=== PATIENT | male | born 1960 | race Caucasian/White ===

== ENCOUNTER 2019-03-23 18:57 | Inpatient (IN) ==
--- NOTE | 2019-03-23 20:00 | Emergency Department Note ---
Disposition Clinical Impression: Hyperglycemia, COPD exacerbation Pneumonia Qualifiers: Pneumonia type: due to unspecified organism Laterality: left Lung location: unspecified part of lung Qualified Code(s): J18.9 - Pneumonia, unspecified organism Disposition: Still a Patient Referrals: Sarah Kirby [Primary Care Provider] - Forms: ED Satisfaction Letter Time of Disposition: 23:06 Chest Pain HPI - General Chief Complaint: ED Chest Pain Stated Complaint: chest pains Time Seen by Provider: 03/23/19 20:00 Source: patient Limitations: no limitations Vital Signs Reviewed: Yes Nursing Notes Reviewed: Yes - History of Present Illness HPI Narrative: 58-year-old male presents emergency Department concern for left-sided chest pain has been intermittent in nature last couple days. Patient's had cough, fever, sputum production. Patient has no history of coronary artery disease, but does state that he has hypertension, hyperlipidemia, has been a smoker. States that he started experiencing some left-sided chest sharpness that is worse when he presses on it today. States that he started feeling some numbness and tingling in his left upper extremity that made him want to come in. Severity scale (1-10): 1 - Related Data Home Medications Medication Instructions Recorded Confirmed Albuterol Sulfate [Ventolin Hfa] 2 puff IH QID PRN 10/05/17 03/23/19 Fluticasone Propionate Nasal 1 spray NS DAILY 10/05/17 03/23/19 [Flonase] Fluticasone/Salmeterol [Advair 1 each IH BID 10/05/17 03/23/19 250-50 Diskus] Levothyroxine [Synthroid] 75 mcg PO DAILY 10/05/17 03/23/19 Loratadine [Allergy Relief] 10 mg PO DAILY 10/05/17 03/23/19 Meloxicam 15 mg PO DAILY 10/05/17 03/23/19 Omeprazole [PriLOSEC] 20 mg PO DAILY 10/05/17 03/23/19 Simvastatin [Zocor] 40 mg PO HS 10/05/17 03/23/19 hydroCHLOROthiazide 25 mg PO DAILY 10/05/17 03/23/19 [Hydrochlorothiazide] rOPINIRole [Requip] 1 mg PO HS 10/05/17 03/23/19 Albuterol Sulfate [Ventolin Hfa] 2 puff IH Q6HR PRN 03/23/19 03/23/19 Amoxicillin/Clavulanate [Augmentin] 875 mg PO BIDWM 03/23/19 03/23/19 PredniSONE [Joel] 5 mg PO TID 03/23/19 03/23/19 Tiotropium [place] [Spiriva 2 puff IH DAILY 03/23/19 03/23/19 Respimat] Allergies Allergy/AdvReac Type Severity Reaction Status Date / Time iodine Allergy Rash Verified 03/23/19 19:29 All systems ED: reviewed and negative except as stated. Review of Systems: As Per HPI Constitutional: Denies: fever Cardiovascular: Reports: chest pain Respiratory: Denies: cough, dyspnea Gastrointestinal: Denies: abdominal pain, nausea, vomiting Musculoskeletal: Denies: back pain Integumentary: Denies: rash Neurological: Reports: numbness, paresthesias Chest Pain PMH - Past Medical History Medical history: Reports: asthma, COPD Psychiatric history: Reports: no psych history - Social History Smoking Status: Former smoker Alcohol use: Reports: occasionally Drug use: Reports: none Physical Exam - General Limitations: no limitations General appearance: alert - Head Head exam: normocephalic - Eye Eye exam: Present: EOMI - ENT ENT exam: mucous membranes moist - Neck Neck exam: Present: trachea midline - Chest Chest inspection: Present: symmetric chest wall rise - Respiratory Respiratory exam: Present: wheezes (Mild). Absent: respiratory distress, accessory muscle use - Cardiovascular Cardiovascular exam: Present: regular rate, normal rhythm, normal heart sounds - Abdominal Exam Abdominal exam: Present: soft, Non-Tender. Absent: distention, guarding, rebound, rigidity - Extremities Exam Extremities exam: Present: normal capillary refill. Absent: calf tenderness - Back Exam Back exam: Present: full ROM - Neurological Exam Neurological exam: Present: alert, oriented X3 - Psychiatric Psychiatric exam: Present: normal affect, normal mood - Skin Skin exam: Present: warm, dry, intact, normal color. Absent: rash Course Vital Signs Temperature 98.1 F 03/23/19 19:22 Pulse Rate 59 03/23/19 19:22 Respiratory Rate 18 03/23/19 19:22 Blood Pressure 138/73 03/23/19 19:22 O2 Sat by Pulse Oximetry 91 03/23/19 19:22 Temperature 98.1 F 03/23/19 19:22 Pulse Rate 65 03/23/19 21:30 Respiratory Rate 16 03/23/19 21:41 Blood Pressure 160/89 03/23/19 21:30 O2 Sat by Pulse Oximetry 88 03/23/19 21:41 Oxygen Delivery Oxygen Delivery Nasal Cannula Chest Pain - [facility] Narrative Medical decision making narrative: 4-year-old male was's [facility] department with concern for left-sided chest pain. Patient hemodynamically stable and currently on his baseline 2 L of oxygen. ECG does reveal some nonspecific T-wave flattening in lateral leads. No other acute findings. D-dimer that was obtained is negative. Chest x-ray reveals left- sided pneumonia. Patient given DuoNeb's, steroids, Levaquin in the emergency department. Troponin negative. Follow-up with his primary care provider for resolution of his pneumonia and for further workup of his chest pain as he has a heart score 4. Patient also had elevated glucose in the 500s. Potassium was low at 2.9. Have not started insulin at this time. Patient to be given 2 L of 0.9% normal saline here in the emergency department. Patient denies any history of diabetes. Elevated beta hydroxy butyric acid, but no evidence of DKA. Patient hemodynamically stable at time of admission. Chest X-Ray 03/23/19 19:03 IMPRESSION: Left more than right basilar opacities may represent bibasilar atelectasis or multifocal pneumonia/aspiration. Hyperinflation suggesting COPD. D/ / Sheldon Leavitt MD / Sheldon Leavitt MD Interpreting Provider: Sheldon Leavitt MD - Lab Data Result diagrams: 03/23/19 20:21 03/23/19 21:32 Lab Results 03/23/19 03/23/19 03/23/19 Range/Units 20:21 20:21 20:21 WBC 9.5 (4.3-11.1) K/mcL RBC 5.27 (4.19-5.50) M/mcL Hgb 16.0 (12.9-16.9) g/dL Hct 47.2 (37.5-50.1) % MCV 89.6 (83.0-100.0) fL MCH 30.4 (28.0-33.3) pg MCHC 33.9 (31.6-35.5) g/dL RDW 13.0 (11.5-14.5) % Plt Count 185 (140-400) K/mcL MPV 12.5 H (9.4-12.4) fL Immature Gran % 1.8 (0-4) % Seg Neutrophils % 67.0 % Lymphocytes % 23.7 % Monocytes % 6.7 % Eosinophils % 0.3 % Basophils % 0.5 % Neutrophils # 6.4 (1.6-8.9) K/mcL Lymphocytes # 2.3 (0.6-4.6) K/mcL Monocytes # 0.6 (0.0-1.3) K/mcL Eosinophils # 0.0 (0.0-0.6) K/mcL Basophils # 0.1 (0.0-0.2) K/mcL PT 10.0 (9.4-12.1) Seconds INR 0.9 D-Dimer 325 (0-500) ng/mLFEU VBG pH (7.32-7.42) pH Units VBG pCO2 (41-51) mmHg VBG pO2 (25-50) mmHg VBG HCO3 (21-27) mEq/L Sodium (136-145) mEq/L Potassium (3.5-5.1) mEq/L Chloride (98-107) mEq/L Carbon Dioxide (23-29) mEq/L BUN (8-23) mg/dL Creatinine (0.70-1.30) mg/dL Est GFR ( Amer) (> 60) Est GFR (Non-Af Amer) (> 60) BUN/Creatinine Ratio (6-26) Glucose (70-105) mg/dL Calculated Osmolality (280-300) Calcium (8.6-10.3) mg/dL Magnesium (1.6-2.6) mg/dL Troponin I (< 0.04) ng/mL Beta-Hydroxybutyric Acd (0.02-0.27) mmol/L 03/23/19 03/23/19 03/23/19 Range/Units 21:32 22:28 22:28 WBC (4.3-11.1) K/mcL RBC (4.19-5.50) M/mcL Hgb (12.9-16.9) g/dL Hct (37.5-50.1) % MCV (83.0-100.0) fL MCH (28.0-33.3) pg MCHC (31.6-35.5) g/dL RDW (11.5-14.5) % Plt Count (140-400) K/mcL MPV (9.4-12.4) fL Immature Gran % (0-4) % Seg Neutrophils % % Lymphocytes % % Monocytes % % Eosinophils % % Basophils % % Neutrophils # (1.6-8.9) K/mcL Lymphocytes # (0.6-4.6) K/mcL Monocytes # (0.0-1.3) K/mcL Eosinophils # (0.0-0.6) K/mcL Basophils # (0.0-0.2) K/mcL PT (9.4-12.1) Seconds INR D-Dimer (0-500) ng/mLFEU VBG pH (7.32-7.42) pH Units VBG pCO2 (41-51) mmHg VBG pO2 (25-50) mmHg VBG HCO3 (21-27) mEq/L Sodium 131 L (136-145) mEq/L Potassium 2.9 L (3.5-5.1) mEq/L Chloride 83 L (98-107) mEq/L Carbon Dioxide 31 H (23-29) mEq/L BUN 24 H (8-23) mg/dL Creatinine 1.29 (0.70-1.30) mg/dL Est GFR ( Amer) > 60 (> 60) Est GFR (Non-Af Amer) 57 L (> 60) BUN/Creatinine Ratio 19 (6-26) Glucose 575 H* (70-105) mg/dL Calculated Osmolality 303 H (280-300) Calcium 8.6 (8.6-10.3) mg/dL Magnesium 2.4 (1.6-2.6) mg/dL Troponin I < 0.03 (< 0.04) ng/mL Beta-Hydroxybutyric Acd 1.39 H (0.02-0.27) mmol/L 03/23/19 Range/Units 22:45 WBC (4.3-11.1) K/mcL RBC (4.19-5.50) M/mcL Hgb (12.9-16.9) g/dL Hct (37.5-50.1) % MCV (83.0-100.0) fL MCH (28.0-33.3) pg MCHC (31.6-35.5) g/dL RDW (11.5-14.5) % Plt Count (140-400) K/mcL MPV (9.4-12.4) fL Immature Gran % (0-4) % Seg Neutrophils % % Lymphocytes % % Monocytes % % Eosinophils % % Basophils % % Neutrophils # (1.6-8.9) K/mcL Lymphocytes # (0.6-4.6) K/mcL Monocytes # (0.0-1.3) K/mcL Eosinophils # (0.0-0.6) K/mcL Basophils # (0.0-0.2) K/mcL PT (9.4-12.1) Seconds INR D-Dimer (0-500) ng/mLFEU VBG pH 7.45 H (7.32-7.42) pH Units VBG pCO2 47 (41-51) mmHg VBG pO2 67 H (25-50) mmHg VBG HCO3 33 H (21-27) mEq/L Sodium (136-145) mEq/L Potassium (3.5-5.1) mEq/L Chloride (98-107) mEq/L Carbon Dioxide (23-29) mEq/L BUN (8-23) mg/dL Creatinine (0.70-1.30) mg/dL Est GFR ( Amer) (> 60) Est GFR (Non-Af Amer) (> 60) BUN/Creatinine Ratio (6-26) Glucose (70-105) mg/dL Calculated Osmolality (280-300) Calcium (8.6-10.3) mg/dL Magnesium (1.6-2.6) mg/dL Troponin I (< 0.04) ng/mL Beta-Hydroxybutyric Acd (0.02-0.27) mmol/L - EKG Data EKG attestation: Yes I reviewed and interpreted this EKG. EKG results narrative: 19:10 Ventricular rate 60 bpm, IL interval 170 ms, QRS duration 105 ms, QT 397 ms, left axis deviation. Sinus rhythm with diffuse T-wave flattening when in comparison with previous ECG. Heart Score - Score History: Slightly Suspicious EKG: Non Specific repolarisation Disturbance Age: 45-65 Risk Factors: Equal/Greater than 3 risk factor or history of atherosclerotic disease Troponin: Less than normal limit HEART Score Total: 4 Attestation Statement - Attestation Attestation: I reviewed the residents documentation and agree with the residents assessment and plan of care. I have personally had face to face time with the patient. (Brief History, Brief Exam, and MDM) I personally supervised and was present for the wharton/critical portions of the following procedures completed by the resident: (add procedures performed here). [id number] time provided Patient arrives complaining of left lateral chest discomfort with a tingling sensation in his left arm. He recently drove back from [place]. He is not tachypneic, tachycardic, conversationally dyspneic, nor hypoxic. I attest to supervising the resident physician's interpretation of the ECG
[2019-03-23 20:31] LABS: Basophils # 0.1 K/mcL (0.0-0.2); Basophils % 0.5 %; Eosinophils % 0.3 %; Hematocrit 47.2 % (37.5-50.1); Immature Granulocytes % 1.8 % (0-4); Lymphocytes # 2.3 K/mcL (0.6-4.6); Lymphocytes % 23.7 %; Mean Corpuscular HGB Conc 33.9 g/dL (31.6-35.5); Mean Corpuscular Hemoglobin 30.4 pg (28.0-33.3); Mean Corpuscular Volume 89.6 fL (83.0-100.0); Mean Platelet Volume 12.5 fL (9.4-12.4); Monocytes # 0.6 K/mcL (0.0-1.3); Monocytes % 6.7 %; Neutrophils # 6.4 K/mcL (1.6-8.9); Platelet Count 185 K/mcL (140-400); Red Blood Count 5.27 M/mcL (4.19-5.50); White Blood Count 9.5 K/mcL (4.3-11.1)
[2019-03-23 20:39] LABS: INR 0.9
[2019-03-23] MEDS ORDERED: Morphine Sulfate Immed Rel 15 MG TABLET PO STA (21:12)
[2019-03-23] MEDS ORDERED: levoFLOXacin 750 MG TABLET PO ONE ×2 (21:13→21:34)
[2019-03-23] MEDS ORDERED: predniSONE 20 MG TABLET PO ONE (21:13)
[2019-03-23] MEDS ORDERED: Ipratropium/Albuterol Neb 3 ML IH ONE (21:13)
[2019-03-23 22:11] LABS: BUN/Creatinine Ratio 19 (6-26); Blood Urea Nitrogen 24 mg/dL (8-23); Calcium 8.6 mg/dL (8.6-10.3); Carbon Dioxide 31 mEq/L (23-29); Chloride 83 mEq/L (98-107); Glucose 575 mg/dL (70-105); Osmolality,Calculated 303 (280-300); Potassium 2.9 mEq/L (3.5-5.1); Sodium 131 mEq/L (136-145); Troponin I < 0.03 ng/mL (< 0.04); eGFR For African Americans > 60 (> 60); eGFR For Non-African Americans 57 (> 60)
[2019-03-23] MEDS ORDERED: 0.9 % Sodium Chloride 1,000 ML IVC ONE ×2 (22:11→23:28)
[2019-03-23] MEDS ORDERED: Potassium Chloride 40 MEQ, Lidocaine 1% 2 ML in D5% in Water 500 ML IVPB ONE (22:27)
[2019-03-23 22:48] LABS: VBG HCO3 33 mEq/L (21-27); VBG PCO2 47 mmHg (41-51); VBG PH 7.45 pH Units (7.32-7.42); VBG PO2 67 mmHg (25-50)
--- NOTE | 2019-03-24 00:33 | Internal Med History&Physical ---
<Delmy Barbosa M - Last Filed: 03/24/19 06:13> Date of Encounter: 03/24/19 Time of Encounter: 00:33 Internal Medicine - H&P: HPI Admitted From: Emergency Dept History of present illness: Mr. Mendez is a 58 year old male with history of COPD, hyperlipidemia, hypertension who presented to the emergency department on 03/23/19 secondary to left sided chest pain and generalized weakness. Over the past several weeks the patient has had noted progressive worsening of his weakness and has noted intermittent fluttering of his heart with intermittent pain over the last several days. He does not describe an exertional component to his chest pain. The chest pain is reproducible and no longer present but did previously have tingling in his left upper extremity. He also notes productive cough, worsening over the last couple of days with green sputum. He was recently treated as an outpatient for possible pneumonia and was given 2 shots in the office of which he is unsure of the name of the medication and a prescription for prednisone and an antibiotic which he has been taking for the last 2 days. The patient otherwise had a recent long car trip from [place] but denies any previous history of DVT, clotting disorder. He denies feeling short of breath at this time. He otherwise has noted polyuria and polydipsia. He denies any previous history of diabetes or family history of diabetes. In the emergency department the patient was found to have no significant leukocytosis or anemia. Patient's BMP shows hyponatremia to 131, hypokalemia down to 2.9, glucose elevated at 575. Patient does have a anion gap metabolic acidosis with respiratory alkalosis. Past Med Surg Social Fam HX - Past Medical History Attestation: Yes The following information was validated with the patient. Source: patient, old records reviewed Medical history: asthma, COPD, hyperlipidemia, hypertension Psychiatric history: no psych history - Social History Smoking Status: Former smoker Smokeless Tobacco Status: No Alcohol use: occasionally Drug use: none - Family History Father Cause of : [place] Hx Family Cardiac Disorders: Yes Mother Hx Family Cancer: Yes (Lung cancer) Internal Medicine - H&P: Meds Albuterol Sulfate [Ventolin Hfa] 2 puff IH QID PRN 10/05/17 [History] Fluticasone Propionate Nasal [Flonase] 1 spray NS DAILY 10/05/17 [History] Fluticasone/Salmeterol [Advair 250-50 Diskus] 1 each IH BID 10/05/17 [History] Levothyroxine [Synthroid] 75 mcg PO DAILY 10/05/17 [History] Loratadine [Allergy Relief] 10 mg PO DAILY 10/05/17 [History] Meloxicam 15 mg PO DAILY 10/05/17 [History] Omeprazole [PriLOSEC] 20 mg PO DAILY 10/05/17 [History] Simvastatin [Zocor] 40 mg PO HS 10/05/17 [History] hydroCHLOROthiazide [Hydrochlorothiazide] 25 mg PO DAILY 10/05/17 [History] rOPINIRole [Requip] 1 mg PO HS 10/05/17 [History] Albuterol Sulfate [Ventolin Hfa] 2 puff IH Q6HR PRN 03/23/19 [History] Amoxicillin/Clavulanate [Augmentin] 875 mg PO BIDWM 03/23/19 [History] PredniSONE [Joel] 5 mg PO TID 03/23/19 [History] Tiotropium [place] [Spiriva Respimat] 2 puff IH DAILY 03/23/19 [History] Allergy/AdvReac Type Severity Reaction Status Date / Time iodine Allergy Rash Verified 03/23/19 19:29 All Systems PM: A 10-system review of systems was performed and is negative for pertinent findings except as documented above in the HPI. - Constitutional Constitutional: weakness, no chills, no fever(s) - EENT Eyes: no change in vision - Cardiovascular Cardiovascular ROS IM: chest pain, palpitations, no dyspnea, no edema - Respiratory Respiratory: cough, chest congestion, no wheezing, no pain on inspiration - Gastrointestinal Gastrointestinal: no abdominal pain, no constipation, no vomiting - Genitourinary Genitourinary ROS male: urinary frequency, no dysuria - Musculoskeletal Musculoskeletal ROS IM: no arthralgias, no back pain - Integumentary Integumentary IM: no erythema, no rash - Neurological Neurological ROS: tingling, no dizziness, no headache(s) - Constitutional Vitals: Temp Pulse Resp BP Pulse Ox 98.1 F 69 18 147/72 96 03/23/19 19:22 03/24/19 00:30 03/24/19 00:30 03/24/19 00:30 03/24/19 00:30 Exam: General: Conversant. No apparent distress. Follow commands. Appears stated age. Neck: No JVD. Trachea midline. Neck supple. Eyes: PERRL. No scleral icterus. HENT: Normocephalic and atraumatic. Moist mucus membranes. Cardiovascular: Regular rate and rhythm. Normal S1 and S2. No murmurs appreciated. Normal capillary refill. Extremities well perfused with 2+ distal pulses bilaterally. No edema. Pulmonary: Diffuse expiratory wheezing. Not in respiratory distress. Speaks in full sentences. on home 2L NC. Abdomen: Soft, nondistended, and tontender. No bruits or masses. No guarding. Neuro: Alert and oriented x3. No slurred speech. No focal deficits noted. Skin: No rashes noted on visualized skin. Musculoskeletal: No bony abnormalities visualized. Moves all extremities. Psych: Normal mood. Pleasant. Makes appropriate eye contact. Internal Med - H&P Results - Labs CBC & Chem 7: 03/24/19 02:35 03/24/19 02:35 Labs: Short CBC 03/23/19 Range/Units 20:21 WBC 9.5 (4.3-11.1) K/mcL Hgb 16.0 (12.9-16.9) g/dL Hct 47.2 (37.5-50.1) % Plt Count 185 (140-400) K/mcL Neutrophils # 6.4 (1.6-8.9) K/mcL BMP 03/23/19 21:32 Sodium 131 L Potassium 2.9 L Chloride 83 L Carbon Dioxide 31 H BUN 24 H Creatinine 1.29 Glucose 575 H* Calcium 8.6 Cardiac Enzymes 03/23/19 Range/Units 21:32 Troponin I < 0.03 (< 0.04) ng/mL - ABG Interpretation ABG results: 03/23/19 22:45 VBG pH 7.45 H VBG pCO2 47 VBG pO2 67 H VBG HCO3 33 H - Impressions ITS Impressions Chest X-Ray 03/23/19 19:03 IMPRESSION: Left more than right basilar opacities may represent bibasilar atelectasis or multifocal pneumonia/aspiration. Hyperinflation suggesting COPD. D/ / Sheldon Leavitt MD / Sheldon Leavitt MD Interpreting Provider: Sheldon Leavitt MD - Assessment and Plan (1) Chest pain Current Visit: Yes Status: Acute Assessment and plan: * Atypical given reproducibility * Nonexertional * Will trend troponins * No ischemic EKG changes * Repeat echo, no previous CHF seen on echo in 2017 Qualifiers: Chest pain type: precordial pain Qualified Code(s): R07.2 - Precordial pain (2) Hyperglycemia Current Visit: Yes Status: Acute Assessment and plan: * There is anion gap acidosis with some ketonuria and elevated beta- hydroxybutyrate but there is alkalotic component with compensation * Patient does admit to polyuria and polydipsia * Recheck BMP following fluid administration of 2L in ED shows normalization of hypokalemia and anion gap, question whether stemming from new onset diabetes * Hypokalemic to 2.9 therefore insulin was not started, recheck following fluids has normalized * Will place on sliding scale insulin and monitor closely * BMP in 4 h * HgbA1c pending * Hyperglycemia may be resultant from recent steroid administration as outpatient (3) Pneumonia Current Visit: Yes Status: Acute Assessment and plan: * Patient started treatment for suspected pneumonia as outpatient two days ago * Will continue levaquin * Not requiring oxygen above baseline, not tachycardic any given evidence of productive cough and LLL infiltrate do not have suspicion for PE at this time Qualifiers: Pneumonia type: due to unspecified organism Laterality: left Lung location: lower lobe of lung Qualified Code(s): J18.1 - Lobar pneumonia, unspecified organism (4) COPD exacerbation Current Visit: Yes Status: Acute Assessment and plan: * Patient does have mild wheezing on examination but continues on home oxygen without significant work of breathing * Scheduled nebs * Home medications * Continue prednisone (5) HTN (hypertension) Current Visit: Yes Status: Acute Assessment and plan: * Per history but on no home medications, will continue to monitor Qualifiers: Hypertension type: essential hypertension Qualified Code(s): I10 - Essential (primary) hypertension (6) DVT prophylaxis Current Visit: Yes Status: Acute Assessment and plan: * Heparin SQ - Time Spent With Patient Total time spent is greater than 50% in coordination of care (as documented) at patient's floor/unit and/or counseling patient: <Sylvia Moreno - Last Filed: 03/24/19 06:51> Date of Encounter: 03/24/19 Internal Medicine - H&P: HPI History of present illness: Mr. Mendez is a 58 year old male All Systems PM: A 10-system review of systems was performed and is negative for pertinent findings except as documented above in the HPI. - Constitutional Vitals: Temp Pulse Resp BP Pulse Ox 98 F 64 20 147/56 93 03/24/19 04:22 03/24/19 06:00 03/24/19 06:00 03/24/19 06:00 03/24/19 06:00 Internal Med - H&P Results - Labs CBC & Chem 7: 03/24/19 02:35 03/24/19 02:35 Labs: Short CBC 03/23/19 03/24/19 Range/Units 20:21 02:35 WBC 9.5 8.9 (4.3-11.1) K/mcL Hgb 16.0 15.6 (12.9-16.9) g/dL Hct 47.2 46.9 (37.5-50.1) % Plt Count 185 181 (140-400) K/mcL Neutrophils # 6.4 7.4 (1.6-8.9) K/mcL BMP 03/23/19 03/24/19 21:32 02:35 Sodium 131 L 132 L Potassium 2.9 L 3.7 D Chloride 83 L 92 L Carbon Dioxide 31 H 29 BUN 24 H 20 Creatinine 1.29 1.08 Glucose 575 H* 457 H Calcium 8.6 7.7 L Cardiac Enzymes 03/23/19 03/24/19 Range/Units 21:32 01:30 Troponin I < 0.03 < 0.03 (< 0.04) ng/mL Urine 03/24/19 Range/Units 00:55 Urine Color Yellow (Yellow) Urine Clarity Clear (Clear) Urine pH 6.5 (5.0-8.0) pH Units Ur Specific [place] 1.030 H (1.010-1.025) Urine Protein Negative (Neg-Trace) mg/dL Urine Glucose (UA) >=1000 H (Normal) mg/dL - ABG Interpretation ABG results: 03/23/19 22:45 VBG pH 7.45 H VBG pCO2 47 VBG pO2 67 H VBG HCO3 33 H - Impressions ITS Impressions Chest X-Ray 03/23/19 19:03 IMPRESSION: Left more than right basilar opacities may represent bibasilar atelectasis or multifocal pneumonia/aspiration. Hyperinflation suggesting COPD. D/ / Sheldon Leavitt MD / Sheldon Leavitt MD Interpreting Provider: Sheldon Leavitt MD - Time Spent With Patient Total time spent is greater than 50% in coordination of care (as documented) at patient's floor/unit and/or counseling patient: - Attending Attestation I performed a history and physical examination of the patient and discussed his management with the resident. I reviewed the residents note and agree with the documented findings and plan of care.
[2019-03-24] MEDS ORDERED: Naloxone 0.4 MG/ML INJ IVP PRN ×2 (01:03→11:07)
[2019-03-24 01:04] LABS: Bilirubin,Urine Negative (Negative); Blood,Urine Negative (Negative); Clarity,Urine Clear (Clear); Color,Urine Yellow (Yellow); Glucose,Urine (UA) >=1000 mg/dL (Normal); Ketones,Urine Trace mg/dL (Negative); Leukocyte Esterase,Urine Negative (Negative); Nitrite,Urine Negative (Negative); PH,Urine 6.5 pH Units (5.0-8.0); Protein,Urine Negative (Neg-Trace); Urobilinogen,Urine Normal (Normal)
[2019-03-24] MEDS ORDERED: Ibuprofen 600 MG TABLET PO ONE (02:33)
[2019-03-24 02:50] LABS: Basophils % 0.5 %; Hematocrit 46.9 % (37.5-50.1); Hemoglobin 15.6 g/dL (12.9-16.9); Immature Granulocytes % 3.5 % (0-4); Lymphocytes # 0.9 K/mcL (0.6-4.6); Lymphocytes % 10.2 %; Mean Corpuscular HGB Conc 33.3 g/dL (31.6-35.5); Mean Corpuscular Hemoglobin 30.1 pg (28.0-33.3); Mean Corpuscular Volume 90.5 fL (83.0-100.0); Mean Platelet Volume 12.5 fL (9.4-12.4); Monocytes # 0.2 K/mcL (0.0-1.3); Neutrophils # 7.4 K/mcL (1.6-8.9); Platelet Count 181 K/mcL (140-400); Red Blood Count 5.18 M/mcL (4.19-5.50); Red Cell Distribution Width 12.8 % (11.5-14.5); Segmented Neutrophils % 83.8 %; White Blood Count 8.9 K/mcL (4.3-11.1)
[2019-03-24 03:31] LABS: BUN/Creatinine Ratio 19 (6-26); Blood Urea Nitrogen 20 mg/dL (8-23); Calcium 7.7 mg/dL (8.6-10.3); Carbon Dioxide 29 mEq/L (23-29); Chloride 92 mEq/L (98-107); Glucose 457 mg/dL (70-105); Magnesium 2.6 mg/dL (1.6-2.6); Osmolality,Calculated 297 (280-300); Potassium 3.7 mEq/L (3.5-5.1); Sodium 132 mEq/L (136-145); eGFR For African Americans > 60 (> 60); eGFR For Non-African Americans > 60 (> 60)
[2019-03-24 04:13] LABS: Phosphorous 3.1 mg/dL (2.7-4.5)
[2019-03-24] MEDS: Albuterol 2.5 MG/3 ML NEBULIZER IH SCH ×5 (04:14→19:57)
[2019-03-24] MEDS ORDERED: Insulin Human Regular 10 UNIT in 0.9 % Sodium Chloride 10 ML IV ONE (04:29)
[2019-03-24] MEDS ORDERED: Dextrose Gel 15 GM/37.5 ML TUBE PO PRN ×4 (05:35→11:07)
[2019-03-24] MEDS ORDERED: D5% in Water 1,000 ML IVC PRN ×2 (05:35→11:07)
[2019-03-24] MEDS ORDERED: *HR* Dextrose 50 % in Water (Syg) 50 ML SYRINGE IVP PRN ×2 (05:35→11:07)
[2019-03-24 06:56] LABS: VBG HCO3 29 mEq/L (21-27); VBG PCO2 52 mmHg (41-51); VBG PH 7.34 pH Units (7.32-7.42); VBG PO2 56 mmHg (25-50)
[2019-03-24 07:13] LABS: BUN/Creatinine Ratio 17 (6-26); Blood Urea Nitrogen 19 mg/dL (8-23); Calcium 8.3 mg/dL (8.6-10.3); Carbon Dioxide 29 mEq/L (23-29); Chloride 93 mEq/L (98-107); Glucose 414 mg/dL (70-105); Magnesium 2.7 mg/dL (1.6-2.6); Phosphorous 4.1 mg/dL (2.7-4.5); Potassium 3.3 mEq/L (3.5-5.1); eGFR For African Americans > 60 (> 60); eGFR For Non-African Americans > 60 (> 60)
[2019-03-24] MEDS ORDERED: Insulin LISPRO 300 UNITS/3 ML VIAL SQ SCH ×4 (07:30→21:00)
[2019-03-24 07:32] LABS: Estimated Average Glucose 361 mg/dl
--- NOTE | 2019-03-24 07:40 | Internal Med Progress Note ---
<Edd Matthew - Last Filed: 03/24/19 12:37> Hospitalist Progress Note - Encounter Date of Encounter: 03/24/19 - Exam Vitals: Temp Pulse Resp BP Pulse Ox 97.5 F L 57 16 149/75 93 03/24/19 07:40 03/24/19 11:00 03/24/19 12:05 03/24/19 11:00 03/24/19 12:05 - Time Spent with Patient Total time spent is greater than 50% in coordination of care (as documented) at patient's floor/unit and/or counseling patient: Internal Medicine: Result - Labs CBC & Chem 7: 03/24/19 02:35 03/24/19 06:38 Labs: Short CBC 03/23/19 03/24/19 Range/Units 20:21 02:35 WBC 9.5 8.9 (4.3-11.1) K/mcL Hgb 16.0 15.6 (12.9-16.9) g/dL Hct 47.2 46.9 (37.5-50.1) % Plt Count 185 181 (140-400) K/mcL Neutrophils # 6.4 7.4 (1.6-8.9) K/mcL BMP 03/23/19 03/24/19 03/24/19 21:32 02:35 06:38 Sodium 131 L 132 L 135 L Potassium 2.9 L 3.7 D 3.3 L Chloride 83 L 92 L 93 L Carbon Dioxide 31 H 29 29 BUN 24 H 20 19 Creatinine 1.29 1.08 1.15 Glucose 575 H* 457 H 414 H Calcium 8.6 7.7 L 8.3 L Cardiac Enzymes 03/23/19 03/24/19 03/24/19 Range/Units 21:32 01:30 06:38 Troponin I < 0.03 < 0.03 < 0.03 (< 0.04) ng/mL Urine 03/24/19 Range/Units 00:55 Urine Color Yellow (Yellow) Urine Clarity Clear (Clear) Urine pH 6.5 (5.0-8.0) pH Units Ur Specific [place] 1.030 H (1.010-1.025) Urine Protein Negative (Neg-Trace) mg/dL Urine Glucose (UA) >=1000 H (Normal) mg/dL - ABG Interpretation ABG results: PT/INR, D-dimer PT 10.0 Seconds (9.4-12.1) 03/23/19 20:21 D-Dimer 325 ng/mLFEU (0-500) 03/23/19 20:21 - Impressions Impressions Chest X-Ray 03/23/19 19:03 IMPRESSION: Left more than right basilar opacities may represent bibasilar atelectasis or multifocal pneumonia/aspiration. Hyperinflation suggesting COPD. D/ / Sheldon Leavitt MD / Sheldon Leavitt MD Interpreting Provider: Sheldon Leavitt MD Echocardiogram 03/24/19 04:21 Impressions: LVEF 65-70%. Normal LV chamber size, wall thickness and function. Normal right ventricular structure and function. No significant valvular dysfunction. Unable to estimate RVSP due to lack of TR jet and IVC visualization. Left Ventricular Wall Motion: Rest Echo Findings All wall segments showed normal motion. Findings: Study Quality * Technically sub-optimal due to poor echocardiographic windows. ECG Findings * Sinus bradycardia. Left Ventricle * LVEF 65-70%. * Normal LV chamber size, wall thickness and systolic function. * Normal left ventricular diastolic function. Right Ventricle * Normal right ventricular structure and function. Left Atrium * Normal left atrial size. Right Atrium * Normal right atrial size. Interatrial Septum * Interatrial septum not well evaluated. Aortic Valve * Aortic valve not well visualized. * No aortic stenosis. * No aortic regurgitation. Mitral Valve * Normal mitral valve structure. * No mitral stenosis. * No mitral regurgitation. Tricuspid Valve * Normal tricuspid valve structure. * No tricuspid stenosis. * Trace tricuspid regurgitation. * Unable to estimate RVSP due to lack of TR jet. Pulmonic Valve * Pulmonic valve is not well visualized. * No pulmonic stenosis. * No pulmonic regurgitation. Aorta * Normally sized aortic root. Pericardium * The pericardium appears normal. IVC * The IVC is not well evaluated. Consult Discharge Plan - Plan Referrals: Sarah Kirby [Primary Care Provider] - - Attending Attestation I examined this patient and my medical decision-making was reviewed with the Resident Physician on 03/24/19. I agree with the documented findings, disposition and treatment plan as described except to the extent set forth below. Mr Mendez is currently hospitalized for acute DKA (resolved), new onset DM (HgbA1C >14) and pneumonia. He remains moderate to high risk due to potential for worsening clinical status. Mr Mendez is doing better. He feels thirsty and wants to get up and move around. No fever or chills. Appears to be on Prednisone frequently in past. Recent dx pneumonia. Denies hx DM though A1C is over 14. Most likely will need insulin at discharge. Exam: Alert Comfortable. Mucus membranes dry. NC. Neck supple. Heart reg and not tachy now. Lungs clear now. Abd soft and nontender. No edema. No rash. Moves all extremities. Plan: Start insulin regimen. Continue abx. Decrease steroids. Will need diabetic education outpatient. <Chavo Asencio - Last Filed: 03/24/19 19:51> Hospitalist Progress Note - Encounter Date of Encounter: 03/24/19 Time of Encounter: 09:00 - Subjective Interval History: Patient feels better today. No other problems mentioned. - Exam Vitals: Temp Pulse Resp BP Pulse Ox 98 F 64 20 147/56 93 03/24/19 04:22 03/24/19 06:00 03/24/19 06:00 03/24/19 06:00 03/24/19 06:00 Exam: Gen.: Middle-aged male no acute distress Skin: Good turgor. Xanthelasma above left eye Eyes: Moist and anicteric ENT. Euvolemic oral mucosa. No Kathryn of the tongue Cardio: Regular rate and rhythm. No murmurs gallops or rubs. Distant Respiratory: Basilar dry crackles. Nonlabored breathing Abdomen: Some distention likely normal anatomy for this patient. Obese. Not diffusely tender MSK: No clubbing. Extremities: Capillary refill less than 2 seconds upper extremities. 1+ pitting edema to mid lawson bilaterally Neuro: Eyes able to focus. No tremors noted Psych: Appropriate behavior. Answers questions coherently - Assessment and Plan (1) Diabetes mellitus Current Visit: Yes Status: Acute Assessment and Plan: -Patient presented with hyperglycemia and DKA-like picture -Urine ketones, positive beta hydroxybutyric acid, blood sugar 575, low potassium. Hemoglobin A1c 14.2. -VBG showed metabolic acidosis, metabolic alkalosis, and non-anion gap acidosis.//Consider secondary to ketoacidosis, home diuretic therapy, RTA respectively. //Acidosis improving. -Long-acting insulin with sliding scale. Plan: Urine studies pending. (2) COPD exacerbation Current Visit: Yes Status: Acute Assessment and Plan: -Likely secondary to pneumonia -Increased cough, sputum production, sputum purulence. -Duo nebs scheduled and prednisone Plan: Continue to monitor (3) HTN (hypertension) Current Visit: Yes Status: Acute Assessment and Plan: -Likely secondary to Western diet -Likely stage II. Patient did not mention this in the history he gave to me. Pressures have been stable. Will continue to monitor. Plan: Outpatient optimization of medicine when not acutely ill. (4) Pneumonia Current Visit: Yes Status: Acute Assessment and Plan: -Likely secondary to CAP. Suspected -Respiratory symptoms as above -As seen on CXR Plan: Levofloxacin day 1 of 5 (5) Hypothyroidism Current Visit: Yes Status: Acute Assessment and Plan: -Chronic Plan: Continue levothyroxine DVT Prophylaxis: Subcutaneous heparin - Time Spent with Patient Total time spent is greater elvin Internal Medicine: Result - Labs CBC & Chem 7: 03/24/19 02:35 03/24/19 06:38 Labs: Short CBC 03/23/19 03/24/19 Range/Units 20:21 02:35 WBC 9.5 8.9 (4.3-11.1) K/mcL Hgb 16.0 15.6 (12.9-16.9) g/dL Hct 47.2 46.9 (37.5-50.1) % Plt Count 185 181 (140-400) K/mcL Neutrophils # 6.4 7.4 (1.6-8.9) K/mcL BMP 03/23/19 03/24/19 03/24/19 21:32 02:35 06:38 Sodium 131 L 132 L Potassium 2.9 L 3.7 D 3.3 L Chloride 83 L 92 L 93 L Carbon Dioxide 31 H 29 29 BUN 24 H 20 19 Creatinine 1.29 1.08 1.15 Glucose 575 H* 457 H 414 H Calcium 8.6 7.7 L 8.3 L Cardiac Enzymes 03/23/19 03/24/19 03/24/19 Range/Units 21:32 01:30 06:38 Troponin I < 0.03 < 0.03 < 0.03 (< 0.04) ng/mL Urine 03/24/19 Range/Units 00:55 Urine Color Yellow (Yellow) Urine Clarity Clear (Clear) Urine pH 6.5 (5.0-8.0) pH Units Ur Specific [place] 1.030 H (1.010-1.025) Urine Protein Negative (Neg-Trace) mg/dL Urine Glucose (UA) >=1000 H (Normal) mg/dL - ABG Interpretation ABG results: PT/INR, D-dimer PT 10.0 Seconds (9.4-12.1) 03/23/19 20:21 D-Dimer 325 ng/mLFEU (0-500) 03/23/19 20:21 - Impressions Impressions Chest X-Ray 03/23/19 19:03 IMPRESSION: Left more than right basilar opacities may represent bibasilar atelectasis or multifocal pneumonia/aspiration. Hyperinflation suggesting COPD. D/ / Sheldon Leavitt MD / Sheldon Leavitt MD Interpreting Provider: Sheldon Leavitt MD <Chavo Asencio - Last Filed: 03/24/19 19:51> (3) HTN (hypertension) Qualifiers: Hypertension type: essential hypertension Qualified Code(s): I10 - Essential (primary) hypertension (4) Pneumonia Qualifiers: Pneumonia type: due to unspecified organism Laterality: left Lung location: lower lobe of lung Qualified Code(s): J18.1 - Lobar pneumonia, unspecified organism
[2019-03-24 07:47] LABS: Osmolality,Calculated 300 (280-300); Sodium 135 mEq/L (136-145)
[2019-03-24] MEDS ORDERED: predniSONE 20 MG TABLET PO SCH (09:00)
[2019-03-24] MEDS ORDERED: Fluticasone Propionate Nasal 50 MCG/SPRAY BOTTLE NS SCH (09:00)
[2019-03-24] MEDS ORDERED: Loratadine 10 MG TABLET PO SCH (09:00)
[2019-03-24] MEDS ORDERED: levoFLOXacin 750 MG TABLET PO SCH (09:00)
[2019-03-24] MEDS ORDERED: Tiotropium 18 MCG inhalation IH SCH (09:00)
[2019-03-24] MEDS ORDERED: Budesonide/Formoterol 160/4.5 1 PUFF INH IH SCH (10:00)
[2019-03-24] MEDS: Insulin LISPRO 300 UNITS/3 ML VIAL SQ SCH ×4 (12:07→16:02)
[2019-03-24] MEDS: Budesonide/Formoterol 160/4.5 1 PUFF INH IH SCH (19:57)
[2019-03-24] MEDS ORDERED: rOPINIRole 1 MG TABLET PO SCH ×2 (21:00)
[2019-03-24] MEDS ORDERED: Insulin DETEMIR 100 UNIT/ML X5UNITS SQ SCH (21:00)
[2019-03-24] MEDS: *HR* Heparin 5,000 UNIT/ML VIAL SQ SCH (21:47)
[2019-03-25] MEDS ORDERED: Albuterol 2.5 MG/3 ML NEBULIZER IH PRN ×2
[2019-03-25] MEDS: Albuterol 2.5 MG/3 ML NEBULIZER IH SCH ×5 (00:19→15:38)
[2019-03-25 02:21] LABS: Basophils % 0.4 %; Eosinophils % 0.1 %; Hematocrit 46.6 % (37.5-50.1); Hemoglobin 15.5 g/dL (12.9-16.9); Immature Granulocytes % 2.8 % (0-4); Lymphocytes # 1.9 K/mcL (0.6-4.6); Lymphocytes % 18.4 %; Mean Corpuscular HGB Conc 33.3 g/dL (31.6-35.5); Mean Corpuscular Hemoglobin 30.2 pg (28.0-33.3); Mean Corpuscular Volume 90.7 fL (83.0-100.0); Mean Platelet Volume 12.6 fL (9.4-12.4); Monocytes # 0.6 K/mcL (0.0-1.3); Monocytes % 5.7 %; Neutrophils # 7.5 K/mcL (1.6-8.9); Platelet Count 187 K/mcL (140-400); Red Blood Count 5.14 M/mcL (4.19-5.50); Red Cell Distribution Width 13.1 % (11.5-14.5); Segmented Neutrophils % 72.6 %; White Blood Count 10.3 K/mcL (4.3-11.1)
[2019-03-25 02:39] LABS: BUN/Creatinine Ratio 16 (6-26); Blood Urea Nitrogen 16 mg/dL (8-23); Calcium 8.5 mg/dL (8.6-10.3); Carbon Dioxide 29 mEq/L (23-29); Chloride 99 mEq/L (98-107); Glucose 332 mg/dL (70-105); Magnesium 2.2 mg/dL (1.6-2.6); Osmolality,Calculated 296 (280-300); Sodium 136 mEq/L (136-145); eGFR For African Americans > 60 (> 60); eGFR For Non-African Americans > 60 (> 60)
[2019-03-25 03:48] LABS: Potassium,Urine 5.4 mEq/L; Sodium, Urine 58.4 mEq/L
--- NOTE | 2019-03-25 06:16 | Internal Med Progress Note ---
Hospitalist Progress Note - Encounter Date of Encounter: 03/25/19 - Exam Vitals: Temp Pulse Resp BP Pulse Ox 98.0 F 49 16 156/59 93 03/25/19 03:19 03/25/19 03:19 03/25/19 04:11 03/25/19 03:03/25/19 04:11 - Assessment and Plan (1) Diabetes mellitus Current Visit: Yes Status: Acute Assessment and Plan: -Patient presented with hyperglycemia and DKA-like picture -Urine ketones, positive beta hydroxybutyric acid, blood sugar 575, low potassium. Hemoglobin A1c 14.2. -VBG showed metabolic acidosis, metabolic alkalosis, and non-anion gap acidos is.//Consider secondary to ketoacidosis, home diuretic therapy, RTA respectively. //Acidosis improving.// + urine anion gap. Plan: Long-acting insulin with sliding scale. (2) COPD exacerbation Current Visit: Yes Status: Acute Assessment and Plan: -Likely secondary to pneumonia -Increased cough, sputum production, sputum purulence. -Duo nebs scheduled and prednisone Plan: Continue to monitor (3) HTN (hypertension) Current Visit: Yes Status: Acute Assessment and Plan: -Likely secondary to Western diet -Likely stage II. Patient did not mention this in the history he gave to me. Pressures have been stable. Will continue to monitor. Plan: Outpatient optimization of medicine when not acutely ill. (4) Pneumonia Current Visit: Yes Status: Acute Assessment and Plan: -Likely secondary to CAP. Suspected -Respiratory symptoms as above -As seen on CXR Plan: Levofloxacin day 2 of 5 (5) Hypothyroidism Current Visit: Yes Status: Acute Assessment and Plan: -Chronic Plan: Continue levothyroxine - Time Spent with Patient Total time spent is greater than 50% in coordination of care (as documented) at patient's floor/unit and/or counseling patient: Internal Medicine: Result - Labs CBC & Chem 7: 03/25/19 01:52 03/25/19 01:52 Labs: Short CBC 03/25/19 Range/Units 01:52 WBC 10.3 (4.3-11.1) K/mcL Hgb 15.5 (12.9-16.9) g/dL Hct 46.6 (37.5-50.1) % Plt Count 187 (140-400) K/mcL Neutrophils # 7.5 (1.6-8.9) K/mcL BMP 03/24/19 03/25/19 06:38 01:52 Sodium 135 L 136 Potassium 3.3 L 3.0 L Chloride 93 L 99 Carbon Dioxide 29 29 BUN 19 16 Creatinine 1.15 0.99 Glucose 414 H 332 H Calcium 8.3 L 8.5 L Cardiac Enzymes 03/24/19 Range/Units 06:38 Troponin I < 0.03 (< 0.04) ng/mL - ABG Interpretation ABG results: PT/INR, D-dimer PT 10.0 Seconds (9.4-12.1) 03/23/19 20:21 D-Dimer 325 ng/mLFEU (0-500) 03/23/19 20:21 - Impressions Impressions Echocardiogram 03/24/19 04:21 Impressions: LVEF 65-70%. Normal LV chamber size, wall thickness and function. Normal right ventricular structure and function. No significant valvular dysfunction. Unable to estimate RVSP due to lack of TR jet and IVC visualization. Left Ventricular Wall Motion: Rest Echo Findings All wall segments showed normal motion. Findings: Study Quality * Technically sub-optimal due to poor echocardiographic windows. ECG Findings * Sinus bradycardia. Left Ventricle * LVEF 65-70%. * Normal LV chamber size, wall thickness and systolic function. * Normal left ventricular diastolic function. Right Ventricle * Normal right ventricular structure and function. Left Atrium * Normal left atrial size. Right Atrium * Normal right atrial size. Interatrial Septum * Interatrial septum not well evaluated. Aortic Valve * Aortic valve not well visualized. * No aortic stenosis. * No aortic regurgitation. Mitral Valve * Normal mitral valve structure. * No mitral stenosis. * No mitral regurgitation. Tricuspid Valve * Normal tricuspid valve structure. * No tricuspid stenosis. * Trace tricuspid regurgitation. * Unable to estimate RVSP due to lack of TR jet. Pulmonic Valve * Pulmonic valve is not well visualized. * No pulmonic stenosis. * No pulmonic regurgitation. Aorta * Normally sized aortic root. Pericardium * The pericardium appears normal. IVC * The IVC is not well evaluated. Consult Discharge Plan - Plan Referrals: Sarah Kirby [Primary Care Provider] - (3) HTN (hypertension) Qualifiers: Hypertension type: essential hypertension Qualified Code(s): I10 - Essential (primary) hypertension (4) Pneumonia Qualifiers: Pneumonia type: due to unspecified organism Laterality: left Lung location: lower lobe of lung Qualified Code(s): J18.1 - Lobar pneumonia, unspecified organism
[2019-03-25] MEDS: *HR* Heparin 5,000 UNIT/ML VIAL SQ SCH ×2 (07:07→13:16)
[2019-03-25] MEDS: Budesonide/Formoterol 160/4.5 1 PUFF INH IH SCH (07:29)
--- NOTE | 2019-03-25 07:35 | Discharge Summary ---
<Cahvo Asencio - Last Filed: 03/25/19 15:37> - NOTES TO OUTPATIENT PROVIDER Notes to Outpatient Provider: Hemoglobin A1c 14.2. Patient started on insulin. Adjust anti-glycemic regimen as needed. Continue prednisone taper and 3 days of Levaquin. Thank you Orders not resulted at time of discharge: Pending orders 03/23/19 19:03 ECG 12 lead ECG [ECG] Stat 03/26/19 04:00 Basic Metabolic Panel AM 0400 Complete Blood Count [HEME] AM 0400 MG [Magnesium] AM 0400 Date of Encounter: 03/25/19 Time of Encounter: 08:00 - Discharge Diagnosis (1) Diabetes mellitus Priority: Primary Status: Acute Qualifiers: Qualified Code(s): E08.10 - Diabetes mellitus due to underlying condition with ketoacidosis without coma (2) COPD exacerbation Priority: Secondary Status: Acute (3) HTN (hypertension) Priority: Secondary Status: Chronic Qualifiers: Hypertension type: essential hypertension Qualified Code(s): I10 - Essential (primary) hypertension (4) Pneumonia Priority: Secondary Status: Acute Qualifiers: Pneumonia type: due to unspecified organism Laterality: left Lung location: lower lobe of lung Qualified Code(s): J18.1 - Lobar pneumonia, unspecified organism (5) Hypothyroidism Priority: Secondary Status: Chronic Qualifiers: Qualified Code(s): E03.9 - Hypothyroidism, unspecified Hospital course: Mr. Mendez is a 58 year old male who was admitted for DKA, new onset diabetes mellitus, RTA, and pneumonia. He presented to the ER on 03/23/19 complaining of extreme fatigue and symptoms of a "chest cold". Vitals were stable in the ED. Labs significant for VBG alkalosis with elevated bicarbonate. Decreased potassium, ketonuria, hyperglycemia (500s). His anion gap corrected with only fluid administration. He was placed on an insulin regimen. His potassium remained low throughout stay and was repleted. Patient had been undergoing treatment for pneumonia on an outpatient basis he should complete 5 total days of levofloxacin. He was diagnosed with COPD exacerbation and treated with duo nebs and prednisone taper. Patient was found to be in stage II hypertension in the hospital with outpatient treatment with hydrochlorothiazide. Hydrochlorothiazide was discontinued and NIKHIL inhibitor was began. Patient medically stable for discharge. Patient notified of symptoms of hypoglycemia and how to correct this. Patient and understood, repeated, and agreed with plan. - Time Spent with Patient Total time spent providing and/or coordinating discharge services: - Discharge Medications Prescriptions: New Diabetic Supplies,Miscell [Alkaline Batteries] 1 each TIDAC #1 each Lancets/Blood Glucose Strips [Fora [id number] Strp-Lnct] 1 each TIDAC #90 combo..pkg levoFLOXacin [Levaquin] 750 mg PO DAILY 3 Days #3 tablet Insulin DETEMIR [Levemir Flextouch] 48 unit SQ HS #1 insuln.pen Insulin ASPART [Novolog Flexpen] 16 unit SQ TIDAC #1 insuln.pen Insulin ASPART [Novolog Flexpen] See Protocol SQ TIDAC #1 insuln.pen predniSONE [PredniSONE] See Taper PO DAILY 8 Days #10 tablet Blood Sugar Diagnostic [Test Strips] 1 each TIDAC #90 strip Lisinopril [Zestril] 5 mg PO DAILY #30 tablet Continued Omeprazole [PriLOSEC] 20 mg PO DAILY Loratadine [Allergy Relief] 10 mg PO DAILY Fluticasone Propionate Nasal [Flonase] 1 spray NS DAILY Simvastatin [Zocor] 40 mg PO HS rOPINIRole [Requip] 1 mg PO HS Fluticasone/Salmeterol [Advair 250-50 Diskus] 1 each IH BID Levothyroxine [Synthroid] 75 mcg PO DAILY Meloxicam 15 mg PO DAILY Albuterol Sulfate [Ventolin Hfa] 2 puff IH Q6HR PRN PRN Reason: Shortness Of Breath Amoxicillin/Clavulanate [Augmentin] 875 mg PO BIDWM Tiotropium [place] [Spiriva Respimat] 2 puff IH DAILY Discontinued hydroCHLOROthiazide [Hydrochlorothiazide] 25 mg PO DAILY Home Medications: Fluticasone Propionate Nasal [Flonase] 1 spray NS DAILY 10/05/17 [History] Fluticasone/Salmeterol [Advair 250-50 Diskus] 1 each IH BID 10/05/17 [History] Levothyroxine [Synthroid] 75 mcg PO DAILY 10/05/17 [History] Loratadine [Allergy Relief] 10 mg PO DAILY 10/05/17 [History] Meloxicam 15 mg PO DAILY 10/05/17 [History] Omeprazole [PriLOSEC] 20 mg PO DAILY 10/05/17 [History] Simvastatin [Zocor] 40 mg PO HS 10/05/17 [History] rOPINIRole [Requip] 1 mg PO HS 10/05/17 [History] Albuterol Sulfate [Ventolin Hfa] 2 puff IH Q6HR PRN 03/23/19 [History] Amoxicillin/Clavulanate [Augmentin] 875 mg PO BIDWM 03/23/19 [History] Tiotropium [place] [Spiriva Respimat] 2 puff IH DAILY 03/23/19 [History] Blood Sugar Diagnostic [Test Strips] 1 each TIDAC #90 strip 03/25/19 [Rx] Diabetic Supplies,Miscell [Alkaline Batteries] 1 each TIDAC #1 each 03/25/19 [Rx] Insulin ASPART [Novolog Flexpen] 16 unit SQ TIDAC #1 insuln.pen 03/25/19 [Rx] Insulin ASPART [Novolog Flexpen] See Protocol SQ TIDAC #1 insuln.pen 03/25/19 [Rx] Insulin DETEMIR [Levemir Flextouch] 48 unit SQ HS #1 insuln.pen 03/25/19 [Rx] Lancets/Blood Glucose Strips [Fora [id number] Str-Lnnd] 1 each TIDAC #90 combo..pkg 03/25/19 [Rx] Lisinopril [Zestril] 5 mg PO DAILY #30 tablet 03/25/19 [Rx] levoFLOXacin [Levaquin] 750 mg PO DAILY 3 Days #3 tablet 03/25/19 [Rx] predniSONE [PredniSONE] See Taper PO DAILY 8 Days #10 tablet 03/25/19 [Rx] Allergies/Adverse Reactions: Allergy/AdvReac Type Severity Reaction Status Date / Time iodine Allergy Rash Verified 03/23/19 19:29 Date of admission: 03/24/19 06:42 Primary care physician: Sarah Kirby - Constitutional Vitals: Temp Pulse Resp BP Pulse Ox 97.7 F 53 16 147/67 93 03/25/19 06:31 03/25/19 06:31 03/25/19 06:31 03/25/19 06:31 03/25/19 06:31 Exam: Gen.: Middle-aged male. No acute distress Skin: Good turgor. mckay in appearance Cardio: Regular rate and rhythm no murmurs gallops or rubs. No carotid bruits Respiratory: Mild basilar crackles. Wheezing versus upper airway sounds upper anterior lung brown Abdomen: Nondistended. Nontender Neuro: Eyes able to track. No noticeable tremor Psych: Appropriate behavior. Answers questions - Patient Status Disposition: Home, Self-Care Condition: Good Functional capacity at discharge: independent ambulation Overall status at discharge: patient is back to baseline - Ambulatory Orders Ambulatory Orders: Misc. Order2 Time Frame: 1 Month, Location: Determined By Patient Misc. Order3 Time Frame: 1 Month, Location: Determined By Patient Misc. Orders Time Frame: 1 Month, Location: Determined By Patient - Discharge Instructions Follow Up With: Sarah Kirby [Primary Care Provider] - - Diet and Activity Activity: increase activity as tolerated Diet: diabetic diet, low fat, low cholesterol, low salt diet <Edd Matthew - Last Filed: 03/25/19 17:15> Orders not resulted at time of discharge: Pending orders 03/23/19 19:03 ECG 12 lead ECG [ECG] Stat Date of Encounter: 03/25/19 - Discharge Diagnosis (1) Diabetes mellitus Status: Acute Qualifiers: Diabetes mellitus type: type 2 Diabetes mellitus senior living insulin use: without senior living use Diabetes mellitus complication status: with hyperglycemia Qualified Code(s): E11.65 - Type 2 diabetes mellitus with hyperglycemia (2) HTN (hypertension) Status: Chronic Qualifiers: Hypertension type: essential hypertension Qualified Code(s): I10 - Essential (primary) hypertension (3) Hypothyroidism Status: Chronic Qualifiers: Hypothyroidism type: acquired Qualified Code(s): E03.9 - Hypothyroidism, unspecified (4) Pneumonia Status: Acute Qualifiers: Pneumonia type: due to unspecified organism Laterality: left Lung location: lower lobe of lung Qualified Code(s): J18.1 - Lobar pneumonia, unspecified organism Hospital course: Mr. Mendez is a 58 year old male - Time Spent with Patient Total time spent providing and/or coordinating discharge services: Date of admission: 03/24/19 06:42 Primary care physician: Sarah Kirby - Constitutional Vitals: Temp Pulse Resp BP Pulse Ox 98.1 F 62 16 153/74 92 03/25/19 10:46 03/25/19 10:46 03/25/19 10:57 03/25/19 10:46 03/25/19 10:57 - Attending Attestation I examined this patient and my medical decision-making was reviewed with the Resident Physician on 03/25/19. I agree with the documented findings, disposition and treatment plan as described except to the extent set forth below. Mr Mendez was admitted for presumed DKA and dehydration. He responded to fluid boluses and insulin boluses. His A1C is greater than 14. He is now afebrile and ready for discharge home. Exam: Alert. Comfortable. Mucus membranes dry. Heart reg. No wheeze. Abd soft. Plan: D/C home on insulin today. D/C time 34min
[2019-03-25] MEDS ORDERED: predniSONE 20 MG TABLET PO SCH ×2 (09:00)
[2019-03-25] MEDS ORDERED: levoFLOXacin 750 MG TABLET PO SCH (09:00)
[2019-03-25] MEDS ORDERED: Fluticasone Propionate Nasal 50 MCG/SPRAY BOTTLE NS SCH (09:00)
[2019-03-25] MEDS ORDERED: Tiotropium 18 MCG inhalation IH SCH (09:00)
[2019-03-25] MEDS ORDERED: Loratadine 10 MG TABLET PO SCH (09:00)
[2019-03-25] MEDS: Insulin LISPRO 300 UNITS/3 ML VIAL SQ SCH ×4 (09:31→11:35)
[2019-03-25 10:47] VITALS: BP 153/74
--- NOTE | 2019-03-26 10:45 | Electrocardiograph Report ---
[address] [address] Test Date: 2019-03-23 Pat Name: Vipul Mendez Department: 104 Room: 2A16 Gender: Spa Experience Coordinator: Barbara : 1960 Requested By: Kobe Lassiter Order Number: [id number] Reading MD: Ayush Chavarria Measurements Intervals [place] Rate: 60 P: -22 MO: 170 QRS: -39 QRSD: 105 T: 37 QT: 397 QTc: 398 Interpretive Statements SINUS RHYTHM MARKED LEFT AXIS DEVIATION BASELINE ARTIFACT Electronically Signed On 03-26-2019 10:43:44 EDT by Ayush Chavarria
== END 2019-03-25 15:38 | disposition home or self-care (01) | DRG 637 ==
LOC: ICNU 18:57 → EMEROOARM 18:57 → ICNU 03-24 00:53 → SUATTDRO 03-24 06:42 → 2ANU 03-24 12:53
PROVIDERS: ADMIT Internal Medicine Nephrology; ATTEND Internal Medicine

== ENCOUNTER 2022-05-28 11:35 | Observation (INO) ==
[2022-05-28 13:46] LABS: Basophils # 0.1 K/mcL (0.0-0.2); Basophils % 0.7 %; Eosinophils # 0.1 K/mcL (0.0-0.6); Hematocrit 48.7 % (37.5-50.1); Hemoglobin 15.4 g/dL (12.9-16.9); Immature Granulocytes % 1.4 % (0-4); Lymphocytes # 2.4 K/mcL (0.6-4.6); Lymphocytes % 22.4 %; Mean Corpuscular HGB Conc 31.6 g/dL (31.6-35.5); Mean Corpuscular Hemoglobin 29.1 pg (28.0-33.3); Mean Corpuscular Volume 92.1 fL (83.0-100.0); Mean Platelet Volume 10.8 fL (9.4-12.4); Monocytes # 0.9 K/mcL (0.0-1.3); Monocytes % 8.8 %; Neutrophils # 6.9 K/mcL (1.6-8.9); Platelet Count 238 K/mcL (140-400); Red Blood Count 5.29 M/mcL (4.19-5.50); Red Cell Distribution Width 13.7 % (11.5-14.5); Segmented Neutrophils % 65.7 %; White Blood Count 10.5 K/mcL (4.3-11.1)
[2022-05-28 14:02] LABS: BUN/Creatinine Ratio 15 (6-26); Blood Urea Nitrogen 19 mg/dL (8-23); Calcium 9.2 mg/dL (8.6-10.3); Carbon Dioxide 27 mEq/L (23-29); Chloride 103 mEq/L (98-107); Glucose 105 mg/dL (70-105); Osmolality,Calculated 287 (280-300); Potassium 4.1 mEq/L (3.5-5.1); Sodium 137 mEq/L (136-145)
[2022-05-28 14:03] LABS: Troponin I < 0.03 ng/mL (< 0.04)
[2022-05-28 18:31] LABS: Alanine Aminotransferase 15 Units/L (7-52); Albumin 3.9 g/dL (3.5-5.7); Albumin/Globulin Ratio 1.4 (1.1-2.2); Alkaline Phosphatase 83 Units/L (34-104); Aspartate Amino Transferase 16 Units/L (13-39); Bilirubin,Direct 0.1 mg/dL (0.0-0.2); Bilirubin,Indirect 0.3 mg/dL (0.0-1.0); Bilirubin,Total 0.4 mg/dL (0.3-1.0); Globulin 2.8 g/dL (2.4-3.5); Lipase 9 Units/L (11-82); Total Protein 6.7 g/dL (6.4-8.9); Troponin I < 0.03 ng/mL (< 0.04)
[2022-05-28] MEDS ORDERED: Aspirin 81 MG TAB.CHEW PO ONE ×2 (18:53→19:15)
[2022-05-28] MEDS ORDERED: Naloxone 0.4 MG/ML INJ IVP PRN (19:30)
[2022-05-28] MEDS ORDERED: Acetaminophen 325 MG TABLET PO PRN (19:30)
[2022-05-28] MEDS ORDERED: Ondansetron 4 MG/2 ML VIAL IVP PRN (19:30)
[2022-05-28 20:42] LABS: Thyroid Stimulating Hormone 3.584 mcIU/mL (0.340-5.600)
[2022-05-29 04:53] LABS: Hematocrit 48.1 % (37.5-50.1); Mean Corpuscular HGB Conc 31.2 g/dL (31.6-35.5); Mean Corpuscular Hemoglobin 29.1 pg (28.0-33.3); Mean Corpuscular Volume 93.2 fL (83.0-100.0); Platelet Count 217 K/mcL (140-400); Red Blood Count 5.16 M/mcL (4.19-5.50); Red Cell Distribution Width 13.6 % (11.5-14.5); White Blood Count 9.2 K/mcL (4.3-11.1)
[2022-05-29 05:11] LABS: Magnesium 1.9 mg/dL (1.6-2.6)
[2022-05-29] MEDS ORDERED: Magnesium Sulfate 1 GM/102 ML PIGGYBACK IVPB ONE (05:18)
[2022-05-29 07:11] VITALS: O2SAT 95
[2022-05-29] MEDS ORDERED: Regadenoson 0.4 MG/5 ML SYRINGE IVP ONE (08:17)
[2022-05-29 11:03] VITALS: BP 134/71; PULSE 52; TEMP 97.8
[2022-05-29] MEDS ORDERED: Isosorbide MONOnitrate (24 HR) 30 MG TAB.ER.24H PO SCH (11:45)
[2022-05-29] MEDS ORDERED: Metoprolol XL (24 HR) Succ 25 MG TAB.ER.24H PO SCH (12:30)
[2022-05-29] MEDS ORDERED: Fluticasone Propionate Nasal 50 MCG/SPRAY BOTTLE NS SCH (13:30)
[2022-05-29] MEDS ORDERED: Gabapentin 300 MG CAPSULE PO SCH (15:00)
[2022-05-29] MEDS ORDERED: rOPINIRole 1 MG TABLET PO SCH (21:00)
[2022-05-29] MEDS ORDERED: Budesonide/Formoterol 80/4.5 1 PUFF INH IH SCH (22:00)
[2022-05-30] MEDS ORDERED: Aspirin Enteric Coated 81 MG Tablet PO SCH (09:00)
[2022-05-30] MEDS ORDERED: Metoprolol XL (24 HR) Succ 25 MG TAB.ER.24H PO SCH (09:00)
[2022-05-30] MEDS ORDERED: Loratadine 10 MG TABLET PO SCH (09:00)
[2022-05-30] MEDS ORDERED: Tiotropium 10 INH DOSE IH SCH (10:00)
== END 2022-05-29 14:06 | disposition home or self-care (01) ==
LOC: EMEROOARM 11:35 → 3BNU 11:35 → SUATTDRO 19:10 → 3BNU 20:11
PROVIDERS: ADMIT Internal Medicine; ATTEND Family Medicine